=== PATIENT | female | born 1975 | race African-American/Black ===

== ENCOUNTER 2021-03-09 23:34 | Emergency (ER) | payer OTHER ==
[2021-03-10 01:05] LABS: #Basophils 0.1 thou/uL (0.0-0.2); #Lymphocytes 2.8 thou/uL (1.20-3.40); #Monocytes 0.3 thou/uL (0.11-0.59); #Neutrophils 2.4 thou/uL (1.40-6.50); %Basophils 1.2 % (0.0-1.0); %Eosinophils 0.4 % (0.0-10.0); %Lymphocytes 49.1 % (21.0-51.0); %Monocytes 5.7 % (0.0-10.0); %Neutrophils 43.5 % (42.0-75.0); Hemoglobin 15.5 g/dL (12.0-16.0); Mean Corpuscular HGB CONC 32.5 g/dL (32.0-36.0); Mean Corpuscular Hemoglobin 23.4 pg (27.0-31.0); Mean Corpuscular Volume 71.9 fL (78.0-98.0); Mean Platelet Volume 10.2 fL (7.4-10.4); Platelet Count 257 thou/uL (130-400); RBC Distribution Width 16.2 % (11.5-14.5); Red Blood Cell (RBC) Count 6.64 mill/uL (4.20-5.40); White Blood Cell (WBC) Count 5.6 thou/uL (4.8-10.8)
[2021-03-10 01:16] LABS: ALT (SGPT) 11 U/L (8-55); AST (SGOT) 23 U/L (5-34); Albumin 3.9 g/dL (3.5-5.0); Alkaline Phosphatase 161 U/L (40-110); Anion Gap 23 mmol/L (10-20); BUN (Urea Nitrogen) 24 mg/dL (7.0-18.7); Bilirubin, Total 0.8 mg/dL (0.2-1.2); Calc. Creatinine Clearance 0 mL/min (70-130); Carbon Dioxide 17 mmol/L (22-29); Chloride 93 mmol/L (98-107); Globulin 4.3 g/dL (2.4-3.5); Glucose 469 mg/dL (70-105); Potassium 3.8 mmol/L (3.5-5.1); Protein, Total 8.2 g/dL (6.0-8.3); Sodium 129 mmol/L (136-145)
[2021-03-10] MEDS ORDERED: Morphine 4 MG/ML VIAL ONE (01:47)
[2021-03-10 02:06] LABS: CKMB 6.9 ng/mL (0-6.6)
[2021-03-10 02:11] LABS: Hypochromia SLIGHT = 6-15 cells (100X) (0-5/hpf); MDiff Complete? YES; Microcytosis SLIGHT = 6-15 cells (100X) (0-5/hpf); Platelet Morphology Comment Appears Adequate
[2021-03-10 02:12] LABS: RBC Morphology Normal
== END 2021-03-10 02:20 | disposition short-term general hospital (02) ==
LOC: BURERS 23:34
DX: R07.9 Chest pain, unspecified (principal); E11.65 Type 2 diabetes mellitus with hyperglycemia; I25.2 Old myocardial infarction; E78.00 Pure hypercholesterolemia, unspecified; I25.10 Atherosclerotic heart disease of native coronary artery without angina pectoris
CPT/HCPCS: 71045; 80053; 82553; 84484; 85025; 93005; 96374; 96375; J2270

== ENCOUNTER 2021-03-31 19:38 | Emergency (ER) | payer OTHER ==
[2021-03-31] MEDS ORDERED: Iopamidol 370 76% 100 ML VIAL FS ONE (19:39)
[2021-03-31] MEDS ORDERED: Morphine 4 MG/ML VIAL ONE (20:27)
[2021-03-31] MEDS ORDERED: diphenhydrAMINE 50 MG/ML VIAL ONE (20:28)
[2021-03-31] MEDS ORDERED: diphenhydrAMINE 12.5 MG/5 ML UDCUP ONE (20:28)
[2021-03-31 20:33] LABS: Bilirubin Negative (Negative); Blood, Urine Moderate (Negative); Clarity Clear (Clear); Glucose, Urine (Dipstick) >=1000 mg/dL (Negative); Ketone, Urine 15 mg/dL (Negative); Leukocyte Negative (Negative); Nitrite Negative (Negative); Protein, Urine (Dipstick) > or equal to 300 mg/dL (Neg-Trace); Specific Gravity, Urine 1.015 (1.005-1.030); Urobilinogen 0.2 mg/dL (Less than 2); pH, Urine 6.5 (5.0-9.0)
[2021-03-31 20:41] LABS: Amphetamine Not Detected (NotDetected); Bacteria/HPF 1+ HPF (None Seen); Barbiturates Screen Not Detected (NotDetected); Benzodiazepine Screen Not Detected (NotDetected); Cocaine Metabolite Screen Not Detected (NotDetected); Medtox Control Line Valid? VALID (VALID); Methadone Not Detected (NotDetected); Methamphetamine Not Detected (NotDetected); Opiate Screen Not Detected (NotDetected); Oxycodone Screen Not Detected (NotDetected); Phencyclidine (PCP) Not Detected (NotDetected); RBC/HPF 0-3 HPF (0-3); THC/Cannabinoid Screen Not Detected (NotDetected); Tricyclic Screen Not Detected (NotDetected); WBC/HPF 0-3 HPF (0-3)
[2021-03-31 21:07] LABS: Acetaminophen Less than 6.0 mcg/mL (10.0-30.0); Alcohol Less than 10 mg/dL (Less than 10); Salicylate Less than 8.0 mg/dL (15.0-30.0)
[2021-03-31 21:10] LABS: ALT (SGPT) 14 U/L (8-55); AST (SGOT) 26 U/L (5-34); Albumin 4.6 g/dL (3.5-5.0); Alkaline Phosphatase 194 U/L (40-110); Anion Gap 29 mmol/L (10-20); BUN (Urea Nitrogen) 12 mg/dL (7.0-18.7); Bilirubin, Total 1.2 mg/dL (0.2-1.2); Calc. Creatinine Clearance 0 mL/min (70-130); Carbon Dioxide 19 mmol/L (22-29); Chloride 92 mmol/L (98-107); Globulin 5.1 g/dL (2.4-3.5); Glucose 544 mg/dL (70-105); Lipase 26 U/L (8-78); Magnesium 1.8 mg/dL (1.6-2.6); Potassium 3.7 mmol/L (3.5-5.1); Protein, Total 9.7 g/dL (6.0-8.3); Sodium 136 mmol/L (136-145)
[2021-03-31 21:31] LABS: #Basophils 0.1 thou/uL (0.0-0.2); #Lymphocytes 0.7 thou/uL (1.20-3.40); #Monocytes 0.2 thou/uL (0.11-0.59); #Neutrophils 8.8 thou/uL (1.40-6.50); %Basophils 0.6 % (0.0-1.0); %Lymphocytes 6.9 % (21.0-51.0); %Monocytes 1.7 % (0.0-10.0); %Neutrophils 90.8 % (42.0-75.0); Hemoglobin 13.4 g/dL (12.0-16.0); Mean Corpuscular HGB CONC 31.6 g/dL (32.0-36.0); Platelet Count 330 thou/uL (130-400); RBC Distribution Width 16.8 % (11.5-14.5); White Blood Cell (WBC) Count 9.7 thou/uL (4.8-10.8)
[2021-03-31] MEDS ORDERED: Labetalol HCl 100 MG/20 ML VIAL ONE (21:57)
[2021-03-31 22:02] LABS: CKMB 7.1 ng/mL (0-6.6)
[2021-03-31] MEDS ORDERED: Insulin Regular 300 UNITS/3 ML VIAL ONE (22:14)
[2021-03-31] MEDS ORDERED: Nitroglycerin 50 MG/250 ML BOT 250 ML ONE (23:39)
[2021-03-31] MEDS ORDERED: Heparin 25,000 units/D5W 500 ML ONE (23:45)
[2021-03-31] MEDS ORDERED: Heparin 10,000 UNITS/1 ML VIAL ONE (23:45)
[2021-04-01 00:01] LABS: Prothrombin Time 13.2 sec (12.0-14.7)
[2021-04-01 00:03] LABS: PTT 29.7 sec (22.9-36.1)
== END 2021-04-01 | disposition short-term general hospital (02) ==
LOC: BURERS 19:38
DX: I21.09 ST elevation (STEMI) myocardial infarction involving other coronary artery of anterior wall (principal); I13.10 Hypertensive heart and chronic kidney disease without heart failure, with stage 1 through stage 4 chronic kidney disease, or unspecified chronic kidney disease; E11.22 Type 2 diabetes mellitus with diabetic chronic kidney disease; N18.9 Chronic kidney disease, unspecified; R29.700 NIHSS score 0; R79.1 Abnormal coagulation profile; I25.2 Old myocardial infarction; E78.00 Pure hypercholesterolemia, unspecified; Z95.5 Presence of coronary angioplasty implant and graft
CPT/HCPCS: 36415; 36416; 70450; 71045; 71275; 80053; 80306; 80307; 81003; 81015; 82553; 83605; 83690; 83735; 84484; 85025; 85379; 85610; 85730; 93005; 94760; 96374; 96375; 96376; J1200; J1644; J1815; J2270; Q0163; Q9967

== ENCOUNTER 2021-04-19 18:46 | Emergency (ER) | payer OTHER ==
[2021-04-19 19:45] LABS: Bilirubin Negative (Negative); Blood, Urine Trace (Negative); Clarity Clear (Clear); Glucose, Urine (Dipstick) 500 mg/dL (Negative); Ketone, Urine Negative (Negative); Leukocyte Negative (Negative); Nitrite Negative (Negative); Protein, Urine (Dipstick) > or equal to 300 mg/dL (Neg-Trace); Urobilinogen 0.2 mg/dL (Less than 2)
[2021-04-19 19:53] LABS: Bacteria/HPF None Seen HPF (None Seen); RBC/HPF 0-3 HPF (0-3); Squamous Epithelial 0-3 HPF (0-3); WBC/HPF None Seen HPF (0-3)
[2021-04-19] MEDS ORDERED: Clopidogrel Bisulfate 75 MG TAB PO SCH (20:00)
[2021-04-19 20:03] LABS: ALT (SGPT) 13 U/L (8-55); AST (SGOT) 18 U/L (5-34); Albumin 4.1 g/dL (3.5-5.0); Alkaline Phosphatase 145 U/L (40-110); Anion Gap 18 mmol/L (10-20); BUN (Urea Nitrogen) 12 mg/dL (7.0-18.7); Bilirubin, Total 0.8 mg/dL (0.2-1.2); Calc. Creatinine Clearance 0 mL/min (70-130); Calcium 9.7 mg/dL (7.8-10.44); Carbon Dioxide 28 mmol/L (22-29); Chloride 88 mmol/L (98-107); Globulin 4.6 g/dL (2.4-3.5); Lipase 22 U/L (8-78); Potassium 3.5 mmol/L (3.5-5.1); Protein, Total 8.7 g/dL (6.0-8.3); Sodium 130 mmol/L (136-145)
[2021-04-19 20:05] LABS: Anisocytosis SLIGHT = 6-15 cells (100X) (0-5/hpf); Eosinophils 1 % (0-10); Hemoglobin 11.6 g/dL (12.0-16.0); Hypochromia SLIGHT = 6-15 cells (100X) (0-5/hpf); Lymphocytes 24 % (21-51); MDiff Complete? YES; Mean Corpuscular HGB CONC 30.5 g/dL (32.0-36.0); Mean Corpuscular Hemoglobin 22.9 pg (27.0-31.0); Mean Platelet Volume 8.7 fL (7.4-10.4); Microcytosis SLIGHT = 6-15 cells (100X) (0-5/hpf); Monocytes 9 % (0-10); Neutrophil 66 % (42-75); Ovalocytes SLIGHT = 2-5 cells (100X) (0-1/hpf); Platelet Count 197 thou/uL (130-400); Poikilocytosis SLIGHT = 6-15 cells (100X) (0-5/hpf); RBC Distribution Width 15.2 % (11.5-14.5); Red Blood Cell (RBC) Count 5.06 mill/uL (4.20-5.40); White Blood Cell (WBC) Count 7.7 thou/uL (4.8-10.8)
[2021-04-19 20:07] LABS: Glucose 639 mg/dL (70-105)
[2021-04-19 20:19] LABS: CKMB 4.9 ng/mL (0-6.6)
[2021-04-19] MEDS ORDERED: Fentanyl 100 MCG/2 ML VIAL ONE (20:42)
[2021-04-19] MEDS ORDERED: Promethazine HCl 25 MG/ML VIAL ONE (20:42)
[2021-04-19] MEDS ORDERED: Pantoprazole 40 MG VIAL ONE (20:42)
[2021-04-19] MEDS ORDERED: Labetalol HCl 100 MG/20 ML VIAL ONE (21:30)
[2021-04-19 22:06] LABS: SARS-CoV-2 NAA Rapid Test DETECTED (NotDetected)
[2021-04-19] MEDS ORDERED: niCARdipine 20MG In NaCl 20 MG/200 ML BAG ONE (22:46)
[2021-04-19] MEDS ORDERED: Morphine 4 MG/ML VIAL ONE (22:51)
== END 2021-04-19 23:15 | disposition short-term general hospital (02) ==
LOC: BURERS 18:46
DX: U07.1 COVID-19 (principal); I16.1 Hypertensive emergency; E11.65 Type 2 diabetes mellitus with hyperglycemia; R77.8 Other specified abnormalities of plasma proteins; I10 Essential (primary) hypertension; E78.00 Pure hypercholesterolemia, unspecified; Z79.84 Long term (current) use of oral hypoglycemic drugs; Z79.4 Long term (current) use of insulin
CPT/HCPCS: 36415; 36416; 36556; 71045; 80053; 81003; 81015; 82553; 83690; 84443; 84484; 85025; 93005; 96374; 96375; C9113; J2270; J2550; J3010; U0002

== ENCOUNTER 2021-05-09 10:33 | Emergency (ER) | payer OTHER ==
[2021-05-09] MEDS ORDERED: Morphine 4 MG/ML VIAL ONE (11:03)
[2021-05-09] MEDS ORDERED: Labetalol HCl 100 MG/20 ML VIAL ONE (11:03)
[2021-05-09] MEDS ORDERED: Promethazine HCl 25 MG/ML VIAL ONE (11:03)
[2021-05-09 11:38] LABS: #Basophils 0.1 thou/uL (0.0-0.2); #Lymphocytes 1.4 thou/uL (1.20-3.40); #Monocytes 0.4 thou/uL (0.11-0.59); #Neutrophils 8.2 thou/uL (1.40-6.50); %Basophils 1.1 % (0.0-1.0); %Eosinophils 0.1 % (0.0-10.0); %Lymphocytes 14.1 % (21.0-51.0); %Monocytes 3.8 % (0.0-10.0); %Neutrophils 80.9 % (42.0-75.0); Hemoglobin 13.7 g/dL (12.0-16.0); Mean Corpuscular HGB CONC 31.7 g/dL (32.0-36.0); Mean Corpuscular Volume 72.4 fL (78.0-98.0); Mean Platelet Volume 8.3 fL (7.4-10.4); Platelet Count 270 thou/uL (130-400); RBC Distribution Width 14.4 % (11.5-14.5); Red Blood Cell (RBC) Count 5.95 mill/uL (4.20-5.40); White Blood Cell (WBC) Count 10.1 thou/uL (4.8-10.8)
[2021-05-09 11:43] LABS: ALT (SGPT) 18 U/L (8-55); AST (SGOT) 26 U/L (5-34); Alkaline Phosphatase 164 U/L (40-110); Anion Gap 24 mmol/L (10-20); BUN (Urea Nitrogen) 27 mg/dL (7.0-18.7); Bilirubin, Total 1.1 mg/dL (0.2-1.2); Calc. Creatinine Clearance 0 mL/min (70-130); Carbon Dioxide 27 mmol/L (22-29); Chloride 94 mmol/L (98-107); Globulin 5.5 g/dL (2.4-3.5); Glucose 271 mg/dL (70-105); Potassium 3.5 mmol/L (3.5-5.1); Protein, Total 10.5 g/dL (6.0-8.3); Sodium 141 mmol/L (136-145)
[2021-05-09 12:00] LABS: CKMB 6.3 ng/mL (0-6.6)
[2021-05-09] MEDS ORDERED: Amlodipine 5 MG TAB ONE (12:10)
[2021-05-09] MEDS ORDERED: Enoxaparin Sodium 100 MG/ML SYRINGE ONE (12:11)
[2021-05-09 12:14] LABS: Bilirubin Negative (Negative); Blood, Urine Small (Negative); Clarity Clear (Clear); Glucose, Urine (Dipstick) 500 mg/dL (Negative); Ketone, Urine Trace mg/dL (Negative); Leukocyte Negative (Negative); Nitrite Negative (Negative); Protein, Urine (Dipstick) > or equal to 300 mg/dL (Neg-Trace); Urobilinogen 0.2 mg/dL (Less than 2)
[2021-05-09 12:26] LABS: Cocaine Metabolite Screen Not Detected (NotDetected); Methamphetamine Not Detected (NotDetected); Opiate Screen Not Detected (NotDetected); Phencyclidine (PCP) Not Detected (NotDetected); THC/Cannabinoid Screen Not Detected (NotDetected)
[2021-05-09 12:27] LABS: Amphetamine Not Detected (NotDetected); Barbiturates Screen Not Detected (NotDetected); Benzodiazepine Screen Not Detected (NotDetected); Medtox Control Line Valid? VALID (VALID); Methadone Not Detected (NotDetected); Oxycodone Screen Not Detected (NotDetected); Tricyclic Screen Not Detected (NotDetected)
[2021-05-09 12:28] LABS: Bacteria/HPF None Seen HPF (None Seen); Epithelial Cast 0-3 LPF (None Seen); Squamous Epithelial 0-3 HPF (0-3); Transitional Epithelial 0-3 HPF (None Seen); WBC/HPF 0-3 HPF (0-3)
[2021-05-09 12:37] LABS: Anisocytosis SLIGHT = 6-15 cells (100X) (0-5/hpf); Hypochromia SLIGHT = 6-15 cells (100X) (0-5/hpf); MDiff Complete? YES; Platelet Morphology Comment Appears Adequate; Target Cells SLIGHT = 2-5 cells (100X) (0-1/hpf)
== END 2021-05-09 17:06 | disposition short-term general hospital (02) ==
LOC: BURERS 10:33
DX: R07.89 Other chest pain (principal); I16.0 Hypertensive urgency; E11.9 Type 2 diabetes mellitus without complications; I25.2 Old myocardial infarction; Z79.84 Long term (current) use of oral hypoglycemic drugs; Z79.4 Long term (current) use of insulin; Z79.899 Other long term (current) drug therapy
CPT/HCPCS: 36416; 71045; 80053; 80306; 81003; 81015; 82553; 84484; 85025; 93005; 96372; 96374; 96375; 96376; J1650; J2270; J2550

== ENCOUNTER 2021-05-16 20:47 | Emergency (ER) | payer OTHER ==
[2021-05-16] MEDS ORDERED: Iopamidol 370 76% 100 ML VIAL FS ONE (20:48)
[2021-05-16] MEDS ORDERED: Piperacillin/Tazobactam 4.5 GM VIAL ONE (22:03)
[2021-05-16] MEDS ORDERED: Acetaminophen 500 MG TAB ONE ×2 (22:03→22:05)
[2021-05-16] MEDS ORDERED: Fentanyl 100 MCG/2 ML VIAL ONE ×2 (22:03→23:26)
[2021-05-16 22:08] LABS: Bilirubin Negative (Negative); Blood, Urine Trace (Negative); Clarity Clear (Clear); Glucose, Urine (Dipstick) 500 mg/dL (Negative); Ketone, Urine Negative (Negative); Leukocyte Negative (Negative); Nitrite Negative (Negative); Protein, Urine (Dipstick) 100 mg/dL (Neg-Trace); Urobilinogen 0.2 mg/dL (Less than 2)
[2021-05-16 22:15] LABS: Bacteria/HPF Rare-Few HPF (None Seen); Mucous/LPF 1+ LPF (<2+); RBC/HPF 0-3 HPF (0-3); Squamous Epithelial 0-3 HPF (0-3); WBC/HPF 0-3 HPF (0-3)
[2021-05-16 22:18] LABS: ALT (SGPT) 11 U/L (8-55); AST (SGOT) 20 U/L (5-34); Albumin 4.1 g/dL (3.5-5.0); Alkaline Phosphatase 101 U/L (40-110); Anion Gap 16 mmol/L (10-20); BUN (Urea Nitrogen) 17 mg/dL (7.0-18.7); Bilirubin, Total 0.9 mg/dL (0.2-1.2); Calc. Creatinine Clearance 0 mL/min (70-130); Calcium 9.8 mg/dL (7.8-10.44); Carbon Dioxide 27 mmol/L (22-29); Chloride 95 mmol/L (98-107); Globulin 4.3 g/dL (2.4-3.5); Glucose 278 mg/dL (70-105); Potassium 3.7 mmol/L (3.5-5.1); Protein, Total 8.4 g/dL (6.0-8.3); Sodium 134 mmol/L (136-145)
[2021-05-16 22:43] LABS: Hemoglobin 10.3 g/dL (12.0-16.0); Mean Corpuscular HGB CONC 32.5 g/dL (32.0-36.0); Mean Corpuscular Hemoglobin 23.7 pg (27.0-31.0); Mean Corpuscular Volume 72.9 fL (78.0-98.0); Mean Platelet Volume 9.3 fL (7.4-10.4); Platelet Count 237 thou/uL (130-400); RBC Distribution Width 13.9 % (11.5-14.5); Red Blood Cell (RBC) Count 4.34 mill/uL (4.20-5.40); White Blood Cell (WBC) Count 12.7 thou/uL (4.8-10.8)
[2021-05-16 22:44] LABS: #Basophils 0.4 thou/uL (0.0-0.2); #Eosinphils 0.1 thou/uL (0.0-0.7); #Lymphocytes 1.5 thou/uL (1.20-3.40); #Neutrophils 9.8 thou/uL (1.40-6.50); %Basophils 2.9 % (0.0-1.0); %Eosinophils 0.7 % (0.0-10.0); %Lymphocytes 11.9 % (21.0-51.0); %Monocytes 7.6 % (0.0-10.0); %Neutrophils 76.9 % (42.0-75.0)
[2021-05-16] MEDS ORDERED: Promethazine HCl 25 MG/ML VIAL ONE (23:25)
[2021-05-16] MEDS ORDERED: Enoxaparin Sodium 100 MG/ML SYRINGE ONE (23:26)
[2021-05-17] MEDS ORDERED: Fentanyl 100 MCG/2 ML VIAL ONE (00:27)
[2021-05-17 02:56] LABS: Hypochromia SLIGHT = 6-15 cells (100X) (0-5/hpf); MDiff Complete? YES; Microcytosis SLIGHT = 6-15 cells (100X) (0-5/hpf); Platelet Morphology Comment Appears Adequate
== END 2021-05-17 00:30 | disposition short-term general hospital (02) ==
LOC: BURERS 20:47
DX: E11.621 Type 2 diabetes mellitus with foot ulcer (principal); L97.519 Non-pressure chronic ulcer of other part of right foot with unspecified severity; I10 Essential (primary) hypertension; E11.9 Type 2 diabetes mellitus without complications; E78.00 Pure hypercholesterolemia, unspecified; I25.2 Old myocardial infarction; E78.5 Hyperlipidemia, unspecified; E66.9 Obesity, unspecified; Z68.45 Body mass index [BMI] 70 or greater, adult; Z79.4 Long term (current) use of insulin; Z79.899 Other long term (current) drug therapy
CPT/HCPCS: 71275; 80053; 81003; 81015; 83605; 85025; 85379; 87040; 87086; J1650; J2543; J2550; J3010; Q9967

== ENCOUNTER 2021-05-23 22:01 | Emergency (ER) | payer OTHER ==
[2021-05-23] MEDS ORDERED: Iopamidol 370 76% 100 ML VIAL FS ONE (22:02)
[2021-05-23 23:21] LABS: #Basophils 0.1 thou/uL (0.0-0.2); #Eosinphils 0.2 thou/uL (0.0-0.7); #Lymphocytes 1.9 thou/uL (1.20-3.40); #Monocytes 0.7 thou/uL (0.11-0.59); #Neutrophils 5.6 thou/uL (1.40-6.50); %Eosinophils 2.2 % (0.0-10.0); %Lymphocytes 22.2 % (21.0-51.0); %Monocytes 8.8 % (0.0-10.0); %Neutrophils 65.9 % (42.0-75.0); Hemoglobin 7.9 g/dL (12.0-16.0); Mean Corpuscular HGB CONC 32.1 g/dL (32.0-36.0); Mean Corpuscular Hemoglobin 23.5 pg (27.0-31.0); Mean Corpuscular Volume 73.2 fL (78.0-98.0); Mean Platelet Volume 8.1 fL (7.4-10.4); Platelet Count 289 thou/uL (130-400); RBC Distribution Width 14.2 % (11.5-14.5); Red Blood Cell (RBC) Count 3.36 mill/uL (4.20-5.40); White Blood Cell (WBC) Count 8.5 thou/uL (4.8-10.8)
[2021-05-23 23:40] LABS: ALT (SGPT) 8 U/L (8-55); AST (SGOT) 16 U/L (5-34); Albumin 3.2 g/dL (3.5-5.0); Alkaline Phosphatase 90 U/L (40-110); Anion Gap 15 mmol/L (10-20); BUN (Urea Nitrogen) 18 mg/dL (7.0-18.7); Bilirubin, Total 0.4 mg/dL (0.2-1.2); CRP (Inflammatory) 10.89 mg/dL (= or < 0.5); Calc. Creatinine Clearance 0 mL/min (70-130); Calcium 8.6 mg/dL (7.8-10.44); Carbon Dioxide 23 mmol/L (22-29); Chloride 100 mmol/L (98-107); Glucose 127 mg/dL (70-105); Protein, Total 7.2 g/dL (6.0-8.3); Sodium 134 mmol/L (136-145)
[2021-05-23 23:41] LABS: MDiff Complete? YES; Microcytosis MODERATE=15-30 cells (100X) (0-5/hpf)
[2021-05-23] MEDS ORDERED: Clindamycin/D5W 600 mg/50 ml Premix Bag ONE (23:43)
[2021-05-23] MEDS ORDERED: Morphine 4 MG/ML VIAL ONE ×2 (23:44→23:45)
[2021-05-24 01:27] LABS: Hemoglobin 8.7 g/dL (12.0-16.0); Mean Corpuscular HGB CONC 33.3 g/dL (32.0-36.0); Mean Corpuscular Hemoglobin 23.8 pg (27.0-31.0); Mean Corpuscular Volume 71.6 fL (78.0-98.0); Mean Platelet Volume 7.2 fL (7.4-10.4); Platelet Count 312 thou/uL (130-400); RBC Distribution Width 15.9 % (11.5-14.5); Red Blood Cell (RBC) Count 3.66 mill/uL (4.20-5.40); White Blood Cell (WBC) Count 10.3 thou/uL (4.8-10.8)
[2021-05-24] MEDS ORDERED: Cefepime 2 GM VIAL ONE (04:53)
[2021-05-24] MEDS ORDERED: Labetalol HCl 200 MG TAB PO SCH (05:00)
[2021-05-24 05:56] LABS: SARS-CoV-2 NAA Rapid Test Not Detected (NotDetected)
[2021-05-24] MEDS ORDERED: Morphine 4 MG/ML VIAL ONE (06:09)
== END 2021-05-24 06:10 | disposition home or self-care (01) ==
LOC: BURERS 22:01
DX: L03.115 Cellulitis of right lower limb (principal); J18.9 Pneumonia, unspecified organism; D64.9 Anemia, unspecified; I10 Essential (primary) hypertension; E11.9 Type 2 diabetes mellitus without complications; E78.00 Pure hypercholesterolemia, unspecified; I25.2 Old myocardial infarction; I25.10 Atherosclerotic heart disease of native coronary artery without angina pectoris; E78.5 Hyperlipidemia, unspecified; E66.9 Obesity, unspecified; Z20.822 Contact with and (suspected) exposure to COVID-19; Z79.4 Long term (current) use of insulin; Z79.899 Other long term (current) drug therapy; Z68.45 Body mass index [BMI] 70 or greater, adult
CPT/HCPCS: 74177; 80053; 82274; 85025; 85027; 86140; 96365; 96375; 96376; J0692; J2270; J3490; Q9967; U0002

== ENCOUNTER 2021-06-02 14:03 | Emergency (ER) | payer OTHER ==
[2021-06-02] MEDS ORDERED: Iopamidol 370 76% 100 ML VIAL FS ONE (14:04)
[2021-06-02 14:36] LABS: #Eosinphils 0.1 thou/uL (0.0-0.7); #Lymphocytes 1.8 thou/uL (1.20-3.40); #Monocytes 0.5 thou/uL (0.11-0.59); #Neutrophils 2.5 thou/uL (1.40-6.50); %Basophils 0.8 % (0.0-1.0); %Eosinophils 1.8 % (0.0-10.0); %Lymphocytes 37.1 % (21.0-51.0); %Monocytes 9.3 % (0.0-10.0); Hemoglobin 9.3 g/dL (12.0-16.0); Mean Corpuscular Hemoglobin 22.3 pg (27.0-31.0); Mean Corpuscular Volume 72.1 fL (78.0-98.0); Mean Platelet Volume 6.3 fL (7.4-10.4); Platelet Count 365 thou/uL (130-400); RBC Distribution Width 14.8 % (11.5-14.5); Red Blood Cell (RBC) Count 4.17 mill/uL (4.20-5.40); White Blood Cell (WBC) Count 4.8 thou/uL (4.8-10.8)
[2021-06-02 14:37] LABS: MDiff Complete? YES
[2021-06-02 14:54] LABS: ALT (SGPT) 22 U/L (8-55); AST (SGOT) 33 U/L (5-34); Albumin 3.5 g/dL (3.5-5.0); Alkaline Phosphatase 146 U/L (40-110); Anion Gap 14 mmol/L (10-20); BUN (Urea Nitrogen) 22 mg/dL (7.0-18.7); Bilirubin, Total 0.7 mg/dL (0.2-1.2); Calc. Creatinine Clearance 0 mL/min (70-130); Calcium 9.3 mg/dL (7.8-10.44); Carbon Dioxide 24 mmol/L (22-29); Chloride 105 mmol/L (98-107); Globulin 4.7 g/dL (2.4-3.5); Glucose 100 mg/dL (70-105); Potassium 4.1 mmol/L (3.5-5.1); Protein, Total 8.2 g/dL (6.0-8.3); Sodium 139 mmol/L (136-145)
[2021-06-02 15:11] LABS: CKMB 2.9 ng/mL (0-6.6)
[2021-06-02] MEDS ORDERED: Promethazine HCl 25 MG/ML VIAL ONE (15:13)
[2021-06-02] MEDS ORDERED: Morphine 4 MG/ML VIAL ONE ×2 (15:13→16:33)
[2021-06-02] MEDS ORDERED: niCARdipine 20MG In NaCl 20 MG/200 ML BAG ONE (15:44)
[2021-06-02] MEDS ORDERED: Furosemide 40 MG/4 ML VIAL ONE (15:44)
[2021-06-02 20:37] LABS: SARS-CoV-2 NAA Rapid Test Not Detected (NotDetected)
== END 2021-06-02 16:46 | disposition short-term general hospital (02) ==
LOC: BURERS 14:03
DX: I11.0 Hypertensive heart disease with heart failure (principal); I50.9 Heart failure, unspecified; R94.31 Abnormal electrocardiogram [ECG] [EKG]; E11.9 Type 2 diabetes mellitus without complications; E78.00 Pure hypercholesterolemia, unspecified; I25.2 Old myocardial infarction; I25.10 Atherosclerotic heart disease of native coronary artery without angina pectoris; E78.5 Hyperlipidemia, unspecified; E66.9 Obesity, unspecified; Z68.45 Body mass index [BMI] 70 or greater, adult; Z20.822 Contact with and (suspected) exposure to COVID-19; Z79.4 Long term (current) use of insulin
CPT/HCPCS: 71275; 80053; 82553; 83880; 84484; 85025; 93005; 96365; 96375; 96376; J1940; J2270; J2550; Q9967; U0002

== ENCOUNTER 2021-06-20 15:40 | Emergency (ER) | payer OTHER ==
[2021-06-20 17:09] LABS: ALT (SGPT) 16 U/L (8-55); AST (SGOT) 27 U/L (5-34); Albumin 3.4 g/dL (3.5-5.0); Alkaline Phosphatase 111 U/L (40-110); Anion Gap 13 mmol/L (10-20); BUN (Urea Nitrogen) 23 mg/dL (7.0-18.7); Bilirubin, Total 0.6 mg/dL (0.2-1.2); Calc. Creatinine Clearance 0 mL/min (70-130); Carbon Dioxide 27 mmol/L (22-29); Chloride 102 mmol/L (98-107); Globulin 4.2 g/dL (2.4-3.5); Glucose 98 mg/dL (70-105); Protein, Total 7.6 g/dL (6.0-8.3); Sodium 138 mmol/L (136-145)
[2021-06-20 17:11] LABS: #Eosinphils 0.1 thou/uL (0.0-0.7); #Lymphocytes 1.8 thou/uL (1.20-3.40); #Monocytes 0.4 thou/uL (0.11-0.59); #Neutrophils 1.4 thou/uL (1.40-6.50); %Eosinophils 2.4 % (0.0-10.0); %Lymphocytes 47.4 % (21.0-51.0); %Monocytes 11.2 % (0.0-10.0); %Neutrophils 37.9 % (42.0-75.0); Hemoglobin 9.7 g/dL (12.0-16.0); Mean Corpuscular HGB CONC 31.5 g/dL (32.0-36.0); Mean Corpuscular Hemoglobin 22.3 pg (27.0-31.0); Mean Corpuscular Volume 70.6 fL (78.0-98.0); Mean Platelet Volume 8.5 fL (7.4-10.4); Platelet Count 262 thou/uL (130-400); Red Blood Cell (RBC) Count 4.36 mill/uL (4.20-5.40); White Blood Cell (WBC) Count 3.7 thou/uL (4.8-10.8)
[2021-06-20 17:27] LABS: CKMB 3.4 ng/mL (0-6.6)
[2021-06-20] MEDS ORDERED: Fentanyl 100 MCG/2 ML VIAL ONE ×2 (17:55→18:55)
[2021-06-20 18:34] LABS: Anisocytosis MODERATE=16-30 cells (100X) (0-5/hpf); Basophilic Stippling SLIGHT = 1-2 cells (100X) (None Seen); Hypochromia SLIGHT = 6-15 cells (100X) (0-5/hpf); MDiff Complete? YES; Polychromasia SLIGHT = 2-3 cells (100X) (0-2/hpf)
[2021-06-20] MEDS ORDERED: Labetalol HCl 100 MG/20 ML VIAL ONE (18:34)
[2021-06-20] MEDS ORDERED: hydrALAZINE 20 MG/ML VIAL ONE (19:16)
== END 2021-06-20 19:30 | disposition short-term general hospital (02) ==
LOC: BURERS 15:40
DX: R79.89 Other specified abnormal findings of blood chemistry (principal); R79.1 Abnormal coagulation profile; I10 Essential (primary) hypertension; R00.1 Bradycardia, unspecified; I25.10 Atherosclerotic heart disease of native coronary artery without angina pectoris; E78.00 Pure hypercholesterolemia, unspecified; I25.2 Old myocardial infarction; E11.9 Type 2 diabetes mellitus without complications; Z79.899 Other long term (current) drug therapy
CPT/HCPCS: 71045; 80053; 82553; 84484; 85025; 85379; 93005; 96374; 96375; 96376; J0360; J3010

== ENCOUNTER 2021-06-28 16:16 | Emergency (ER) | payer OTHER ==
[2021-06-28] MEDS ORDERED: Iopamidol 370 76% 100 ML VIAL FS ONE (16:17)
[2021-06-28] MEDS ORDERED: Promethazine HCl 25 MG/ML VIAL ONE (16:50)
[2021-06-28] MEDS ORDERED: Fentanyl 100 MCG/2 ML VIAL ONE ×2 (16:50→18:33)
[2021-06-28] MEDS ORDERED: niCARdipine 20MG In NaCl 20 MG/200 ML BAG ONE (16:50)
[2021-06-28] MEDS ORDERED: Labetalol HCl 100 MG/20 ML VIAL ONE (17:00)
[2021-06-28 17:06] LABS: #Basophils 0.1 thou/uL (0.0-0.2); #Eosinphils 0.1 thou/uL (0.0-0.7); #Lymphocytes 2.7 thou/uL (1.20-3.40); #Monocytes 1.1 thou/uL (0.11-0.59); %Basophils 1.3 % (0.0-1.0); %Lymphocytes 26.8 % (21.0-51.0); %Monocytes 10.7 % (0.0-10.0); %Neutrophils 60.2 % (42.0-75.0); Hemoglobin 2.2 g/dL (12.0-16.0); Mean Corpuscular HGB CONC 31.7 g/dL (32.0-36.0); Mean Corpuscular Hemoglobin 22.2 pg (27.0-31.0); Mean Corpuscular Volume 69.9 fL (78.0-98.0); Mean Platelet Volume 8.1 fL (7.4-10.4); Platelet Count 403 thou/uL (130-400); RBC Distribution Width 14.8 % (11.5-14.5); Red Blood Cell (RBC) Count 1.01 mill/uL (4.20-5.40)
[2021-06-28 17:14] LABS: ALT (SGPT) 10 U/L (8-55); Albumin 3.3 g/dL (3.5-5.0); Alkaline Phosphatase 103 U/L (40-110); Anion Gap 16 mmol/L (10-20); BUN (Urea Nitrogen) 17 mg/dL (7.0-18.7); Bilirubin, Total 0.6 mg/dL (0.2-1.2); Calc. Creatinine Clearance 0 mL/min (70-130); Calcium 9.4 mg/dL (7.8-10.44); Carbon Dioxide 27 mmol/L (22-29); Chloride 99 mmol/L (98-107); Glucose 280 mg/dL (70-105); Lipase 40 U/L (8-78); Potassium 4.6 mmol/L (3.5-5.1); Protein, Total 8.3 g/dL (6.0-8.3); Sodium 137 mmol/L (136-145)
[2021-06-28 17:15] LABS: Acetaminophen Less than 6.0 mcg/mL (10.0-30.0); Alcohol Less than 10 mg/dL (Less than 10); Salicylate Less than 8.0 mg/dL (15.0-30.0)
[2021-06-28 17:33] LABS: AST (SGOT) 25 U/L (5-34)
[2021-06-28 17:43] LABS: CKMB 4.5 ng/mL (0-6.6)
[2021-06-28 18:00] LABS: #Basophils 0.1 thou/uL (0.0-0.2); #Eosinphils 0.1 thou/uL (0.0-0.7); #Lymphocytes 1.8 thou/uL (1.20-3.40); #Monocytes 0.7 thou/uL (0.11-0.59); #Neutrophils 3.8 thou/uL (1.40-6.50); %Basophils 1.1 % (0.0-1.0); %Eosinophils 1.1 % (0.0-10.0); %Lymphocytes 28.2 % (21.0-51.0); %Monocytes 10.4 % (0.0-10.0); %Neutrophils 59.2 % (42.0-75.0); Hemoglobin 10.4 g/dL (12.0-16.0); Mean Corpuscular HGB CONC 30.3 g/dL (32.0-36.0); Mean Corpuscular Hemoglobin 21.5 pg (27.0-31.0); Mean Platelet Volume 7.7 fL (7.4-10.4); Platelet Count 253 thou/uL (130-400); Red Blood Cell (RBC) Count 4.83 mill/uL (4.20-5.40); White Blood Cell (WBC) Count 6.4 thou/uL (4.8-10.8)
[2021-06-28 18:01] LABS: MDiff Complete? YES
[2021-06-28 18:02] LABS: MDiff Complete? YES
[2021-06-28 18:12] LABS: ALT (SGPT) 10 U/L (8-55); AST (SGOT) 18 U/L (5-34); Albumin 3.5 g/dL (3.5-5.0); Alkaline Phosphatase 105 U/L (40-110); Anion Gap 14 mmol/L (10-20); BUN (Urea Nitrogen) 17 mg/dL (7.0-18.7); Bilirubin, Total 0.6 mg/dL (0.2-1.2); Calc. Creatinine Clearance 0 mL/min (70-130); Calcium 9.8 mg/dL (7.8-10.44); Carbon Dioxide 28 mmol/L (22-29); Chloride 100 mmol/L (98-107); Globulin 4.7 g/dL (2.4-3.5); Glucose 288 mg/dL (70-105); Potassium 4.2 mmol/L (3.5-5.1); Protein, Total 8.2 g/dL (6.0-8.3); Sodium 138 mmol/L (136-145)
[2021-06-28 18:21] LABS: Amphetamine Not Detected (NotDetected); Barbiturates Screen Not Detected (NotDetected); Benzodiazepine Screen Not Detected (NotDetected); Cocaine Metabolite Screen Not Detected (NotDetected); Medtox Control Line Valid? VALID (VALID); Methadone Not Detected (NotDetected); Methamphetamine Not Detected (NotDetected); Opiate Screen Detected (NotDetected); Oxycodone Screen Not Detected (NotDetected); Phencyclidine (PCP) Not Detected (NotDetected); THC/Cannabinoid Screen Not Detected (NotDetected); Tricyclic Screen Not Detected (NotDetected)
[2021-06-28 18:51] LABS: SARS-CoV-2 NAA Rapid Test Not Detected (NotDetected)
== END 2021-06-28 19:01 | disposition short-term general hospital (02) ==
LOC: BURERS 16:16
DX: I16.1 Hypertensive emergency (principal); R07.9 Chest pain, unspecified; I25.10 Atherosclerotic heart disease of native coronary artery without angina pectoris; I10 Essential (primary) hypertension; Z20.822 Contact with and (suspected) exposure to COVID-19; E78.3 Hyperchylomicronemia; E11.9 Type 2 diabetes mellitus without complications
CPT/HCPCS: 36415; 71045; 71275; 74174; 80053; 80306; 80307; 82553; 83605; 83690; 83880; 84443; 84484; 85025; 85379; 93005; 96374; 96375; 96376; J2550; J3010; Q9967; U0002

== ENCOUNTER 2021-07-07 17:41 | Emergency (ER) | payer OTHER ==
[2021-07-07] MEDS ORDERED: Fentanyl 100 MCG/2 ML VIAL ONE (19:51)
== END 2021-07-07 20:50 | disposition home or self-care (01) ==
LOC: BURERS 17:41
DX: R07.89 Other chest pain (principal); D64.9 Anemia, unspecified; I10 Essential (primary) hypertension; I25.10 Atherosclerotic heart disease of native coronary artery without angina pectoris; E78.00 Pure hypercholesterolemia, unspecified; I25.2 Old myocardial infarction; E11.9 Type 2 diabetes mellitus without complications
CPT/HCPCS: 36415; 71045; 80053; 82553; 83880; 84443; 84484; 85025; 85379; 93005; 96374; J3010

== ENCOUNTER 2021-07-29 16:07 | Emergency (ER) | payer OTHER | END 2021-07-29 16:40 | disposition home or self-care (01) | LOC: BURERS 16:07 | DX: M79.662 Pain in left lower leg (principal); M79.661 Pain in right lower leg; M25.572 Pain in left ankle and joints of left foot; M25.571 Pain in right ankle and joints of right foot; G89.29 Other chronic pain; I25.2 Old myocardial infarction; I10 Essential (primary) hypertension; E78.00 Pure hypercholesterolemia, unspecified; E11.9 Type 2 diabetes mellitus without complications; I25.10 Atherosclerotic heart disease of native coronary artery without angina pectoris | CPT/HCPCS: 99281 ==

== ENCOUNTER 2021-08-02 00:21 | Emergency (ER) | payer OTHER ==
[2021-08-02] MEDS ORDERED: Meclizine HCl 25 MG TAB ONE (00:50)
[2021-08-02 01:17] LABS: Bilirubin Negative (Negative); Blood, Urine Small (Negative); Clarity Clear (Clear); Glucose, Urine (Dipstick) Negative (Negative); Ketone, Urine Negative (Negative); Leukocyte Negative (Negative); Nitrite Negative (Negative); Protein, Urine (Dipstick) > or equal to 300 mg/dL (Neg-Trace); Specific Gravity, Urine 1.025 (1.005-1.030); Urobilinogen 0.2 mg/dL (Less than 2)
[2021-08-02 01:22] LABS: Bacteria/HPF None Seen HPF (None Seen); RBC/HPF 0-3 HPF (0-3); Squamous Epithelial 0-3 HPF (0-3); WBC/HPF None Seen HPF (0-3)
[2021-08-02] MEDS ORDERED: Promethazine HCl 25 MG/ML VIAL ONE (01:31)
[2021-08-02] MEDS ORDERED: Cyclobenzaprine 10 MG TAB ONE (01:33)
== END 2021-08-02 01:26 | disposition home or self-care (01) ==
LOC: BURERS 00:21
DX: R11.2 Nausea with vomiting, unspecified (principal); G89.29 Other chronic pain; M79.606 Pain in leg, unspecified; E11.9 Type 2 diabetes mellitus without complications; I10 Essential (primary) hypertension; I25.10 Atherosclerotic heart disease of native coronary artery without angina pectoris; I25.2 Old myocardial infarction; E78.00 Pure hypercholesterolemia, unspecified; Z79.4 Long term (current) use of insulin; Z79.84 Long term (current) use of oral hypoglycemic drugs; Z79.899 Other long term (current) drug therapy
CPT/HCPCS: 36416; 81003; 81015; 96372; 99283; J2550

== ENCOUNTER 2021-08-02 17:24 | Emergency (ER) | payer OTHER ==
[2021-08-02 18:20] LABS: Hemoglobin 12.4 g/dL (12.0-16.0); Mean Corpuscular HGB CONC 30.1 g/dL (32.0-36.0); Mean Corpuscular Hemoglobin 20.9 pg (27.0-31.0); Mean Corpuscular Volume 69.4 fL (78.0-98.0); Mean Platelet Volume 7.5 fL (7.4-10.4); Platelet Count 421 thou/uL (130-400); RBC Distribution Width 16.7 % (11.5-14.5); Red Blood Cell (RBC) Count 5.95 mill/uL (4.20-5.40); White Blood Cell (WBC) Count 9.9 thou/uL (4.8-10.8)
[2021-08-02] MEDS ORDERED: Labetalol HCl 100 MG/20 ML VIAL ONE (18:22)
[2021-08-02] MEDS ORDERED: Promethazine HCl 25 MG/ML VIAL ONE (18:23)
[2021-08-02] MEDS ORDERED: Pantoprazole 40 MG VIAL ONE (18:23)
[2021-08-02 18:31] LABS: ALT (SGPT) 16 U/L (8-55); AST (SGOT) 32 U/L (5-34); Albumin 3.5 g/dL (3.5-5.0); Alkaline Phosphatase 139 U/L (40-110); Anion Gap 25 mmol/L (10-20); BUN (Urea Nitrogen) 14 mg/dL (7.0-18.7); Bilirubin, Total 0.8 mg/dL (0.2-1.2); Calc. Creatinine Clearance 0 mL/min (70-130); Carbon Dioxide 23 mmol/L (22-29); Chloride 99 mmol/L (98-107); Globulin 6.7 g/dL (2.4-3.5); Glucose 141 mg/dL (70-105); Lipase 11 U/L (8-78); Magnesium 1.4 mg/dL (1.6-2.6); Potassium 3.8 mmol/L (3.5-5.1); Protein, Total 10.2 g/dL (6.0-8.3); Sodium 143 mmol/L (136-145)
[2021-08-02 18:41] LABS: Base Excess-Venous 3.2 mmol/L (-2.0 to 3.0); Bicarbonate (HCO3v) 24.9 mmol/L (22.0-28.0); CO2 Tension (PvCO2) 29.1 mmHg (42.0-51.0); Calcium, Ionized 0.91 mmol/L (1.15-1.33); Chloride 104 mmol/L (98-107); Hemoglobin - Calc 14.7 g/dL (12.0-16.0); Potassium 3.8 mmol/L (3.5-5.1); Sodium 142 mmol/L (138-145); T. Carbon Dioxide 25.8 mmol/L (22.0-28.0); vO2 Saturation-calc 99.8 % (60.0-85.0)
[2021-08-02] MEDS ORDERED: Magnesium 2 GM/50 ML BAG (IN WATER) ONE (18:58)
[2021-08-02 19:42] LABS: CKMB 7.7 ng/mL (0-6.6)
[2021-08-02] MEDS ORDERED: niCARdipine 20MG In NaCl 20 MG/200 ML BAG ONE (19:59)
[2021-08-02] MEDS ORDERED: Heparin 25,000 units/D5W 500 ML ONE (20:00)
[2021-08-02] MEDS ORDERED: Heparin 10,000 UNITS/1 ML VIAL ONE (20:01)
[2021-08-02 20:18] LABS: Bilirubin Negative (Negative); Blood, Urine Moderate (Negative); Clarity Clear (Clear); Glucose, Urine (Dipstick) Negative (Negative); Ketone, Urine Trace mg/dL (Negative); Leukocyte Negative (Negative); Nitrite Negative (Negative); Protein, Urine (Dipstick) > or equal to 300 mg/dL (Neg-Trace); Specific Gravity, Urine 1.025 (1.005-1.030); Urobilinogen 0.2 mg/dL (Less than 2)
[2021-08-02 20:29] LABS: INR-International Normal Ratio 1.3; Prothrombin Time 15.9 sec (12.0-14.7)
[2021-08-02 20:34] LABS: PTT 210.2 sec (22.9-36.1)
[2021-08-02 21:00] LABS: Amphetamine Not Detected (NotDetected); Cocaine Metabolite Screen Not Detected (NotDetected); Methamphetamine Not Detected (NotDetected); Opiate Screen Detected (NotDetected); Phencyclidine (PCP) Not Detected (NotDetected); THC/Cannabinoid Screen Not Detected (NotDetected)
[2021-08-02 21:01] LABS: Barbiturates Screen Not Detected (NotDetected); Benzodiazepine Screen Not Detected (NotDetected); Medtox Control Line Valid? VALID (VALID); Methadone Not Detected (NotDetected); Oxycodone Screen Not Detected (NotDetected); Tricyclic Screen Not Detected (NotDetected)
[2021-08-02 21:17] LABS: Anisocytosis MODERATE=16-30 cells (100X) (0-5/hpf); Band 5 % (5-11); Lymphocytes 12 % (21-51); MDiff Complete? YES; Monocytes 4 % (0-10); Neutrophil 78 % (42-75); Platelet Morphology Comment Appears Increased; Reflex for Review?? YES; Spherocytes SLIGHT = 1-5 cells (100X) (None Seen)
[2021-08-02 21:36] LABS: SARS-CoV-2 NAA Rapid Test Not Detected (NotDetected)
[2021-08-02 21:38] LABS: Bacteria/HPF Rare-Few HPF (None Seen); RBC/HPF 0-3 HPF (0-3); Squamous Epithelial 0-3 HPF (0-3); WBC/HPF 0-3 HPF (0-3)
== END 2021-08-02 21:19 | disposition short-term general hospital (02) ==
LOC: BURERS 17:24
DX: I21.4 Non-ST elevation (NSTEMI) myocardial infarction (principal); I16.1 Hypertensive emergency; Z20.822 Contact with and (suspected) exposure to COVID-19
CPT/HCPCS: 71045; 80053; 80306; 81015; 82330; 82553; 82803; 83605; 83690; 83735; 84443; 84484; 85025; 85060; 85610; 85730; 93005; 96365; 96367; 96375; 96376; C9113; J1644; J2550; J3475; U0002

== ENCOUNTER 2021-08-10 03:45 | Emergency (ER) | payer OTHER ==
[2021-08-10] MEDS ORDERED: Promethazine HCl 25 MG/ML VIAL ONE (04:22)
[2021-08-10] MEDS ORDERED: Sucralfate 1 GM TAB PO SCH (04:30)
[2021-08-10] MEDS ORDERED: Labetalol HCl 100 MG/20 ML VIAL ONE (04:49)
[2021-08-10] MEDS ORDERED: cloNIDine 0.1 MG TAB ONE (05:41)
[2021-08-10] MEDS ORDERED: tiZANidine HCl 4 MG TAB PO SCH (06:30)
[2021-08-10 06:59] LABS: CKMB 3.7 ng/mL (0-6.6)
[2021-08-10 07:01] LABS: ALT (SGPT) 14 U/L (8-55); AST (SGOT) 19 U/L (5-34); Albumin 3.8 g/dL (3.5-5.0); Alkaline Phosphatase 106 U/L (40-110); Anion Gap 20 mmol/L (10-20); BUN (Urea Nitrogen) 15 mg/dL (7.0-18.7); Bilirubin, Total 0.4 mg/dL (0.2-1.2); Calc. Creatinine Clearance 0 mL/min (70-130); Calcium 9.8 mg/dL (7.8-10.44); Carbon Dioxide 24 mmol/L (22-29); Chloride 100 mmol/L (98-107); Globulin 6.1 g/dL (2.4-3.5); Glucose 167 mg/dL (70-105); Lipase 82 U/L (8-78); Potassium 3.9 mmol/L (3.5-5.1); Protein, Total 9.9 g/dL (6.0-8.3); Sodium 140 mmol/L (136-145)
[2021-08-10 07:12] LABS: #Basophils 0.1 thou/uL (0.0-0.2); #Eosinphils 0.1 thou/uL (0.0-0.7); #Lymphocytes 1.7 thou/uL (1.20-3.40); #Monocytes 0.6 thou/uL (0.11-0.59); #Neutrophils 3.4 thou/uL (1.40-6.50); %Basophils 1.9 % (0.0-1.0); %Eosinophils 1.8 % (0.0-10.0); %Lymphocytes 28.9 % (21.0-51.0); %Monocytes 9.8 % (0.0-10.0); %Neutrophils 57.5 % (42.0-75.0); Hemoglobin 13.2 g/dL (12.0-16.0); Mean Corpuscular HGB CONC 30.4 g/dL (32.0-36.0); Mean Corpuscular Hemoglobin 20.5 pg (27.0-31.0); Mean Corpuscular Volume 67.5 fL (78.0-98.0); Mean Platelet Volume 8.3 fL (7.4-10.4); Platelet Count 283 thou/uL (130-400); RBC Distribution Width 17.1 % (11.5-14.5); Red Blood Cell (RBC) Count 6.46 mill/uL (4.20-5.40); White Blood Cell (WBC) Count 5.9 thou/uL (4.8-10.8)
[2021-08-10 07:29] LABS: Anisocytosis SLIGHT = 6-15 cells (100X) (0-5/hpf); MDiff Complete? YES; Microcytosis MODERATE=15-30 cells (100X) (0-5/hpf); Platelet Morphology Comment Appears Adequate
== END 2021-08-10 06:44 | disposition home or self-care (01) ==
LOC: BURERS 03:45
DX: I16.9 Hypertensive crisis, unspecified (principal); R10.31 Right lower quadrant pain; R10.32 Left lower quadrant pain; R11.10 Vomiting, unspecified; E11.9 Type 2 diabetes mellitus without complications; I10 Essential (primary) hypertension
CPT/HCPCS: 36415; 80053; 82553; 83690; 84484; 85025; 93005; 96372; J2550

== ENCOUNTER 2021-08-26 22:42 | Emergency (ER) | payer OTHER ==
[2021-08-26] MEDS ORDERED: Acetaminophen 500 MG TAB ONE (23:57)
[2021-08-27] MEDS ORDERED: Nitroglycerin 50 MG/250 ML BOT 250 ML ONE (00:12)
[2021-08-27] MEDS ORDERED: Sodium Chloride 0.9% 100 ML ONE (00:12)
[2021-08-27] MEDS ORDERED: Piperacillin/Tazobactam 3.375 GM in Sodium Chloride 0.9% 100 ML IVPB SCH (00:15)
[2021-08-27 00:23] LABS: #Basophils 0.1 thou/uL (0.0-0.2); #Lymphocytes 1.7 thou/uL (1.20-3.40); #Monocytes 1.3 thou/uL (0.11-0.59); #Neutrophils 11.6 thou/uL (1.40-6.50); %Basophils 0.7 % (0.0-1.0); %Eosinophils 0.2 % (0.0-10.0); %Lymphocytes 11.6 % (21.0-51.0); %Monocytes 8.5 % (0.0-10.0); %Neutrophils 79.1 % (42.0-75.0); Hemoglobin 8.2 g/dL (12.0-16.0); Mean Corpuscular HGB CONC 31.3 g/dL (32.0-36.0); Mean Corpuscular Volume 67.2 fL (78.0-98.0); Mean Platelet Volume 7.8 fL (7.4-10.4); Platelet Count 272 thou/uL (130-400); RBC Distribution Width 17.6 % (11.5-14.5); Red Blood Cell (RBC) Count 3.89 mill/uL (4.20-5.40); White Blood Cell (WBC) Count 14.7 thou/uL (4.8-10.8)
[2021-08-27 00:32] LABS: ALT (SGPT) 15 U/L (8-55); AST (SGOT) 19 U/L (5-34); Albumin 2.9 g/dL (3.5-5.0); Alkaline Phosphatase 110 U/L (40-110); Anion Gap 17 mmol/L (10-20); BUN (Urea Nitrogen) 19 mg/dL (7.0-18.7); Bilirubin, Total 0.7 mg/dL (0.2-1.2); CRP (Inflammatory) 21.44 mg/dL (= or < 0.5); Calc. Creatinine Clearance 0 mL/min (70-130); Calcium 8.5 mg/dL (7.8-10.44); Carbon Dioxide 23 mmol/L (22-29); Chloride 97 mmol/L (98-107); Glucose 248 mg/dL (70-105); Protein, Total 7.9 g/dL (6.0-8.3); Sodium 133 mmol/L (136-145)
[2021-08-27] MEDS ORDERED: Morphine 4 MG/ML VIAL ONE ×2 (01:22→02:51)
[2021-08-27 03:27] LABS: SARS-CoV-2 NAA Rapid Test Not Detected (NotDetected)
== END 2021-08-27 03:10 | disposition short-term general hospital (02) ==
LOC: BURERS 22:42
DX: L03.116 Cellulitis of left lower limb (principal); E11.9 Type 2 diabetes mellitus without complications; I10 Essential (primary) hypertension; Z20.822 Contact with and (suspected) exposure to COVID-19; Z79.4 Long term (current) use of insulin; Z79.84 Long term (current) use of oral hypoglycemic drugs; Z79.899 Other long term (current) drug therapy
CPT/HCPCS: 36415; 80053; 83605; 85025; 86140; 87040; 87070; 87077; 87186; 87205; 96374; 96375; 96376; J2270; J2543; J3370; J3490; U0002

== ENCOUNTER 2021-09-04 15:06 | Emergency (ER) | payer OTHER | END 2021-09-04 15:21 | disposition left against medical advice (07) | LOC: BURERS 15:06 | DX: Z53.21 Procedure and treatment not carried out due to patient leaving prior to being seen by health care provider (principal) ==

== ENCOUNTER 2021-09-04 16:45 | Emergency (ER) | payer OTHER | END 2021-09-04 17:53 | disposition home or self-care (01) | LOC: BURERS 16:45 | DX: Z46.89 Encounter for fitting and adjustment of other specified devices (principal); R11.0 Nausea; E11.9 Type 2 diabetes mellitus without complications; I10 Essential (primary) hypertension; Z79.4 Long term (current) use of insulin; Z79.84 Long term (current) use of oral hypoglycemic drugs; Z79.899 Other long term (current) drug therapy | CPT/HCPCS: 99283 ==

== ENCOUNTER 2021-09-13 16:46 | Emergency (ER) | payer OTHER ==
[2021-09-13] MEDS ORDERED: Iopamidol 370 76% 100 ML VIAL FS ONE (16:47)
[2021-09-13] MEDS ORDERED: niCARdipine 25 MG/10 ML VIAL FS ONE (16:47)
[2021-09-13] MEDS ORDERED: Promethazine HCl 25 MG/ML VIAL ONE ×2 (17:14→22:05)
[2021-09-13 17:33] LABS: #Basophils 0.1 thou/uL (0.0-0.2); #Eosinphils 0.1 thou/uL (0.0-0.7); #Monocytes 0.5 thou/uL (0.11-0.59); #Neutrophils 3.4 thou/uL (1.40-6.50); %Basophils 1.4 % (0.0-1.0); %Eosinophils 1.2 % (0.0-10.0); %Lymphocytes 20.1 % (21.0-51.0); %Neutrophils 68.3 % (42.0-75.0); ALT (SGPT) Less than 7 U/L (8-55); AST (SGOT) 13 U/L (5-34); Albumin 3.2 g/dL (3.5-5.0); Alkaline Phosphatase 108 U/L (40-110); Anion Gap 17 mmol/L (10-20); Anisocytosis SLIGHT = 6-15 cells (100X) (0-5/hpf); BUN (Urea Nitrogen) 15 mg/dL (7.0-18.7); Bilirubin, Total 0.5 mg/dL (0.2-1.2); Calc. Creatinine Clearance 0 mL/min (70-130); Calcium 8.6 mg/dL (7.8-10.44); Carbon Dioxide 25 mmol/L (22-29); Chloride 98 mmol/L (98-107); Glucose 266 mg/dL (70-105); Hemoglobin 8.9 g/dL (12.0-16.0); Hypochromia MODERATE=16-30 cells (100X) (0-5/hpf); Lipase 14 U/L (8-78); MDiff Complete? YES; Mean Corpuscular Hemoglobin 20.4 pg (27.0-31.0); Mean Corpuscular Volume 68.1 fL (78.0-98.0); Mean Platelet Volume 8.8 fL (7.4-10.4); Microcytosis MODERATE=15-30 cells (100X) (0-5/hpf); Ovalocytes SLIGHT = 2-5 cells (100X) (0-1/hpf); Platelet Count 184 thou/uL (130-400); Poikilocytosis SLIGHT = 6-15 cells (100X) (0-5/hpf); Potassium 4.2 mmol/L (3.5-5.1); Protein, Total 8.2 g/dL (6.0-8.3); RBC Distribution Width 18.8 % (11.5-14.5); Red Blood Cell (RBC) Count 4.35 mill/uL (4.20-5.40); Schistocytes SLIGHT = 2-5 cells (100X) (0-1/hpf); Sodium 136 mmol/L (136-145); Tear Drops SLIGHT = 2-5 cells (100X) (0-1/hpf)
[2021-09-13 17:57] LABS: CKMB 2.2 ng/mL (0-6.6)
[2021-09-13] MEDS ORDERED: Fentanyl 100 MCG/2 ML VIAL ONE ×3 (20:02→22:55)
[2021-09-13] MEDS ORDERED: Labetalol HCl 100 MG/20 ML VIAL ONE (21:28)
[2021-09-13] MEDS ORDERED: niCARdipine 20MG In NaCl 20 MG/200 ML BAG ONE (21:53)
[2021-09-13 21:55] LABS: Bilirubin Negative (Negative); Blood, Urine Trace (Negative); Clarity Clear (Clear); Glucose, Urine (Dipstick) 100 mg/dL (Negative); Ketone, Urine Negative (Negative); Leukocyte Negative (Negative); Nitrite Negative (Negative); Protein, Urine (Dipstick) 100 mg/dL (Neg-Trace); Urobilinogen 0.2 mg/dL (Less than 2); pH, Urine 7.5 (5.0-9.0)
[2021-09-13 22:02] LABS: Bacteria/HPF Rare-Few HPF (None Seen); RBC/HPF 0-3 HPF (0-3); Squamous Epithelial 0-3 HPF (0-3); WBC/HPF 0-3 HPF (0-3)
== END 2021-09-13 23:00 | disposition short-term general hospital (02) ==
LOC: BURERS 16:46
DX: R07.9 Chest pain, unspecified (principal); I10 Essential (primary) hypertension; E11.9 Type 2 diabetes mellitus without complications; R77.8 Other specified abnormalities of plasma proteins; Z79.4 Long term (current) use of insulin; Z79.84 Long term (current) use of oral hypoglycemic drugs; Z79.899 Other long term (current) drug therapy
CPT/HCPCS: 36415; 71045; 71275; 74174; 80053; 81003; 81015; 82553; 83605; 83690; 84484; 85025; 85379; 93005; 94760; 96374; 96375; 96376; J2550; J3010; Q9967

== ENCOUNTER 2021-09-22 23:35 | Emergency (ER) | payer OTHER ==
[2021-09-23 01:59] LABS: #Basophils 0.1 thou/uL (0.0-0.2); #Eosinphils 0.1 thou/uL (0.0-0.7); #Lymphocytes 2.4 thou/uL (1.20-3.40); #Monocytes 0.7 thou/uL (0.11-0.59); #Neutrophils 2.6 thou/uL (1.40-6.50); %Basophils 2.1 % (0.0-1.0); %Eosinophils 2.1 % (0.0-10.0); %Lymphocytes 40.2 % (21.0-51.0); %Monocytes 11.8 % (0.0-10.0); %Neutrophils 43.7 % (42.0-75.0); Hemoglobin 12.1 g/dL (12.0-16.0); Mean Corpuscular HGB CONC 31.7 g/dL (32.0-36.0); Mean Corpuscular Hemoglobin 21.2 pg (27.0-31.0); Mean Platelet Volume 8.2 fL (7.4-10.4); Platelet Count 263 thou/uL (130-400); RBC Distribution Width 19.1 % (11.5-14.5); Red Blood Cell (RBC) Count 5.71 mill/uL (4.20-5.40); White Blood Cell (WBC) Count 5.9 thou/uL (4.8-10.8)
[2021-09-23 02:01] LABS: Hypochromia SLIGHT = 6-15 cells (100X) (0-5/hpf); MDiff Complete? YES; Microcytosis SLIGHT = 6-15 cells (100X) (0-5/hpf); Platelet Morphology Comment Appears Adequate; Poikilocytosis SLIGHT = 6-15 cells (100X) (0-5/hpf)
[2021-09-23 02:13] LABS: Bilirubin Negative (Negative); Blood, Urine Trace (Negative); Clarity Clear (Clear); Glucose, Urine (Dipstick) 100 mg/dL (Negative); Ketone, Urine Negative (Negative); Leukocyte Negative (Negative); Nitrite Negative (Negative); Protein, Urine (Dipstick) > or equal to 300 mg/dL (Neg-Trace); Urobilinogen 0.2 mg/dL (Less than 2); pH, Urine 6.5 (5.0-9.0)
[2021-09-23 02:15] LABS: Bacteria/HPF Rare-Few HPF (None Seen); Mucous/LPF 2+ LPF (<2+); RBC/HPF 0-3 HPF (0-3); Squamous Epithelial 0-3 HPF (0-3); WBC/HPF 0-3 HPF (0-3)
[2021-09-23] MEDS ORDERED: Lisinopril 20 MG TAB ONE (02:17)
[2021-09-23] MEDS ORDERED: Metoprolol Tartrate 5 MG/5 ML VIAL ONE (02:18)
[2021-09-23] MEDS ORDERED: Promethazine 25 MG TAB ONE (02:19)
[2021-09-23] MEDS ORDERED: Morphine 4 MG/ML VIAL ONE (02:23)
[2021-09-23] MEDS ORDERED: Labetalol HCl 200 MG TAB PO SCH (02:30)
[2021-09-23 02:51] LABS: ALT (SGPT) 12 U/L (8-55); AST (SGOT) 18 U/L (5-34); Albumin 3.7 g/dL (3.5-5.0); Alkaline Phosphatase 125 U/L (40-110); Anion Gap 20 mmol/L (10-20); BUN (Urea Nitrogen) 21 mg/dL (7.0-18.7); Bilirubin, Total 0.3 mg/dL (0.2-1.2); Calc. Creatinine Clearance 0 mL/min (70-130); Calcium 9.6 mg/dL (7.8-10.44); Carbon Dioxide 23 mmol/L (22-29); Chloride 99 mmol/L (98-107); Globulin 5.6 g/dL (2.4-3.5); Glucose 204 mg/dL (70-105); Lipase 37 U/L (8-78); Potassium 4.2 mmol/L (3.5-5.1); Protein, Total 9.3 g/dL (6.0-8.3); Sodium 138 mmol/L (136-145)
== END 2021-09-23 03:15 | disposition home or self-care (01) ==
LOC: BURERS 23:35
DX: R10.31 Right lower quadrant pain (principal); G89.4 Chronic pain syndrome; I10 Essential (primary) hypertension; E11.9 Type 2 diabetes mellitus without complications; Z79.899 Other long term (current) drug therapy; Z79.4 Long term (current) use of insulin
CPT/HCPCS: 74176; 80053; 81003; 81015; 83690; 85025; 94760; 96372; J2270; Q0169

== ENCOUNTER 2021-09-23 12:24 | Emergency (ER) | payer OTHER | END 2021-09-23 12:55 | disposition home or self-care (01) | LOC: BURERS 12:24 | DX: R11.2 Nausea with vomiting, unspecified (principal); I10 Essential (primary) hypertension; E11.9 Type 2 diabetes mellitus without complications; G89.29 Other chronic pain; Z79.4 Long term (current) use of insulin; Z79.899 Other long term (current) drug therapy; R10.31 Right lower quadrant pain; G89.4 Chronic pain syndrome | CPT/HCPCS: 74176; 80053; 81003; 81015; 83690; 85025; 94760; 96372; 99283; J2270; Q0169 ==

== ENCOUNTER 2021-09-25 23:28 | Emergency (ER) | payer OTHER | END 2021-09-26 00:02 | disposition home or self-care (01) | LOC: BURERS 23:28 | DX: S98.112D Complete traumatic amputation of left great toe, subsequent encounter (principal); I10 Essential (primary) hypertension; E11.9 Type 2 diabetes mellitus without complications; E78.5 Hyperlipidemia, unspecified | CPT/HCPCS: 99282 ==

== ENCOUNTER 2021-09-28 09:53 | Emergency (ER) | payer OTHER ==
[2021-09-28] MEDS ORDERED: Morphine 4 MG/ML VIAL ONE ×2 (10:36→11:36)
[2021-09-28 10:45] LABS: #Basophils 0.1 thou/uL (0.0-0.2); #Eosinphils 0.1 thou/uL (0.0-0.7); #Lymphocytes 2.2 thou/uL (1.20-3.40); #Monocytes 0.6 thou/uL (0.11-0.59); #Neutrophils 4.8 thou/uL (1.40-6.50); %Basophils 0.9 % (0.0-1.0); %Eosinophils 1.2 % (0.0-10.0); %Lymphocytes 28.5 % (21.0-51.0); %Monocytes 7.5 % (0.0-10.0); %Neutrophils 61.9 % (42.0-75.0); Hemoglobin 10.6 g/dL (12.0-16.0); Mean Corpuscular HGB CONC 29.8 g/dL (32.0-36.0); Mean Corpuscular Hemoglobin 20.4 pg (27.0-31.0); Mean Corpuscular Volume 68.4 fL (78.0-98.0); Mean Platelet Volume 7.9 fL (7.4-10.4); Platelet Count 314 thou/uL (130-400); RBC Distribution Width 19.8 % (11.5-14.5); Red Blood Cell (RBC) Count 5.21 mill/uL (4.20-5.40); White Blood Cell (WBC) Count 7.7 thou/uL (4.8-10.8)
[2021-09-28 10:49] LABS: Bilirubin Negative (Negative); Blood, Urine Trace (Negative); Clarity Clear (Clear); Glucose, Urine (Dipstick) Negative (Negative); Ketone, Urine Negative (Negative); Leukocyte Negative (Negative); Nitrite Negative (Negative); Protein, Urine (Dipstick) > or equal to 300 mg/dL (Neg-Trace); Urobilinogen 0.2 mg/dL (Less than 2); pH, Urine 7.5 (5.0-9.0)
[2021-09-28 10:56] LABS: Bacteria/HPF Rare-Few HPF (None Seen); RBC/HPF 0-3 HPF (0-3); Squamous Epithelial 0-3 HPF (0-3); WBC/HPF 0-3 HPF (0-3)
[2021-09-28 10:57] LABS: ALT (SGPT) 13 U/L (8-55); AST (SGOT) 17 U/L (5-34); Albumin 3.9 g/dL (3.5-5.0); Alkaline Phosphatase 102 U/L (40-110); Anion Gap 18 mmol/L (10-20); BUN (Urea Nitrogen) 20 mg/dL (7.0-18.7); Bilirubin, Total 0.4 mg/dL (0.2-1.2); Calc. Creatinine Clearance 0 mL/min (70-130); Carbon Dioxide 26 mmol/L (22-29); Chloride 99 mmol/L (98-107); Globulin 5.3 g/dL (2.4-3.5); Glucose 109 mg/dL (70-105); Lipase 35 U/L (8-78); Potassium 4.2 mmol/L (3.5-5.1); Protein, Total 9.2 g/dL (6.0-8.3); Sodium 139 mmol/L (136-145)
[2021-09-28 10:59] LABS: BHCG - Serum Negative (NEGATIVE); Pregs Control Background? CLEAR/WHITE (CLR/WHITE); Pregs Control Bar Appear? YES (CONTROL BAR)
[2021-09-28 11:07] LABS: Anisocytosis SLIGHT = 6-15 cells (100X) (0-5/hpf); MDiff Complete? YES; Microcytosis MODERATE=15-30 cells (100X) (0-5/hpf); Platelet Morphology Comment Appears Adequate
[2021-09-28 11:13] LABS: CKMB 2.6 ng/mL (0-6.6)
[2021-09-28] MEDS ORDERED: Promethazine HCl 25 MG/ML VIAL ONE (11:14)
[2021-09-28] MEDS ORDERED: cloNIDine 0.1 MG TAB ONE (11:59)
[2021-09-28] MEDS ORDERED: Labetalol HCl 100 MG/20 ML VIAL ONE (12:56)
[2021-09-28] MEDS ORDERED: niCARdipine 25 MG/10 ML VIAL ONE (13:35)
== END 2021-09-28 14:00 | disposition short-term general hospital (02) ==
LOC: BURERS 09:53
DX: I10 Essential (primary) hypertension (principal); R00.0 Tachycardia, unspecified; E11.9 Type 2 diabetes mellitus without complications; E78.5 Hyperlipidemia, unspecified; Z79.4 Long term (current) use of insulin; Z79.899 Other long term (current) drug therapy
CPT/HCPCS: 74176; 80053; 81003; 81015; 82553; 83605; 83690; 83880; 84484; 84703; 85025; 93005; 96374; 96375; 96376; J2270; J2550

== ENCOUNTER 2022-01-10 22:46 | Emergency (ER) | payer OTHER ==
[2022-01-10] MEDS ORDERED: Lidocaine 2% PF 5 ML VIAL ONE ×2 (23:10→23:32)
[2022-01-10] MEDS ORDERED: Bacitracin 1 PK ONE (23:11)
[2022-01-10] MEDS ORDERED: Cephalexin 250 MG CAP ONE (23:52)
== END 2022-01-10 23:55 | disposition home or self-care (01) ==
LOC: BURERS 22:46
DX: L03.115 Cellulitis of right lower limb (principal); L02.611 Cutaneous abscess of right foot; E11.9 Type 2 diabetes mellitus without complications; I11.0 Hypertensive heart disease with heart failure; I50.9 Heart failure, unspecified; E78.00 Pure hypercholesterolemia, unspecified; Z79.4 Long term (current) use of insulin; Z79.899 Other long term (current) drug therapy
CPT/HCPCS: 10060; J2001

== ENCOUNTER 2022-01-11 17:25 | Emergency (ER) | payer OTHER | END 2022-01-11 18:28 | disposition home or self-care (01) | LOC: BURERS 17:25 | DX: Z48.817 Encounter for surgical aftercare following surgery on the skin and subcutaneous tissue (principal); E11.9 Type 2 diabetes mellitus without complications; I11.0 Hypertensive heart disease with heart failure; I50.9 Heart failure, unspecified; E78.00 Pure hypercholesterolemia, unspecified | CPT/HCPCS: 99282 ==

== ENCOUNTER 2022-02-13 06:29 | Emergency (ER) | payer OTHER ==
[2022-02-13 07:13] LABS: Bilirubin Negative (Negative); Blood, Urine Trace (Negative); Clarity Clear (Clear); Glucose, Urine (Dipstick) 250 mg/dL (Negative); Ketone, Urine Negative (Negative); Leukocyte Negative (Negative); Nitrite Negative (Negative); Protein, Urine (Dipstick) 300 mg/dL (Neg-Trace); Urobilinogen 0.2 mg/dL (Less than 2); pH, Urine 8.5 (5.0-9.0)
[2022-02-13 07:19] LABS: Bacteria/HPF None Seen HPF (None Seen); RBC/HPF 0-3 HPF (0-3); Squamous Epithelial 0-3 HPF (0-3); WBC/HPF None Seen HPF (0-3)
[2022-02-13 07:27] LABS: #Basophils 0.1 thou/uL (0.0-0.2); #Eosinphils 0.1 thou/uL (0.0-0.7); #Lymphocytes 0.6 thou/uL (1.20-3.40); #Monocytes 0.4 thou/uL (0.11-0.59); #Neutrophils 6.4 thou/uL (1.40-6.50); %Basophils 1.1 % (0.0-1.0); %Eosinophils 1.3 % (0.0-10.0); %Lymphocytes 7.8 % (21.0-51.0); %Monocytes 5.5 % (0.0-10.0); %Neutrophils 84.3 % (42.0-75.0); Hemoglobin 10.8 g/dL (12.0-16.0); Mean Corpuscular HGB CONC 31.5 g/dL (32.0-36.0); Mean Corpuscular Hemoglobin 23.6 pg (27.0-31.0); Mean Corpuscular Volume 74.9 fl (78.0-98.0); Mean Platelet Volume 7.7 fL (7.4-10.4); Platelet Count 223 thou/uL (130-400); RBC Distribution Width 16.6 % (11.5-14.5); Red Blood Cell (RBC) Count 4.58 mill/uL (4.20-5.40); White Blood Cell (WBC) Count 7.6 thou/uL (4.8-10.8)
[2022-02-13] MEDS ORDERED: Hyoscyamine Sulfate SL 0.125 mg Tablet ONE (07:31)
[2022-02-13 07:32] LABS: ALT (SGPT) Less than 7 U/L (8-55); AST (SGOT) 15 U/L (5-34); Alkaline Phosphatase 205 U/L (40-110); Anion Gap 20 mmol/L (10-20); BUN (Urea Nitrogen) 28 mg/dL (7.0-18.7); Calc. Creatinine Clearance 0 mL/min (70-130); Calcium 9.6 mg/dL (7.8-10.44); Carbon Dioxide 24 mmol/L (22-29); Chloride 98 mmol/L (98-107); Estimated GFR 35; Globulin 5.4 g/dL (2.4-3.5); Glucose 248 mg/dL (70-105); Lipase 23 U/L (8-78); Potassium 4.1 mmol/L (3.5-5.1); Protein, Total 9.4 g/dL (6.0-8.3); Sodium 138 mmol/L (136-145)
[2022-02-13 07:46] LABS: Platelet Morphology Comment Appears Adequate; RBC Morphology Normal
[2022-02-13 07:47] LABS: MDiff Complete? YES
[2022-02-13 07:50] LABS: CKMB 2.1 ng/mL (0-6.6)
[2022-02-13 08:41] LABS: Amphetamine Not Detected (NotDetected); Barbiturates Screen Not Detected (NotDetected); Benzodiazepine Screen Not Detected (NotDetected); Cocaine Metabolite Screen Not Detected (NotDetected); Medtox Control Line Valid? VALID (VALID); Methadone Not Detected (NotDetected); Methamphetamine Not Detected (NotDetected); Opiate Screen Not Detected (NotDetected); Oxycodone Screen Not Detected (NotDetected); Phencyclidine (PCP) Not Detected (NotDetected); THC/Cannabinoid Screen Not Detected (NotDetected); Tricyclic Screen Not Detected (NotDetected)
[2022-02-13] MEDS ORDERED: Magnesium 2 GM/50 ML BAG (IN WATER) ONE (08:45)
== END 2022-02-13 08:58 | disposition home or self-care (01) ==
LOC: BURERS 06:29
DX: S80.02XA Contusion of left knee, initial encounter (principal); K59.00 Constipation, unspecified; E11.9 Type 2 diabetes mellitus without complications; E03.9 Hypothyroidism, unspecified; I11.0 Hypertensive heart disease with heart failure; I50.9 Heart failure, unspecified; E78.00 Pure hypercholesterolemia, unspecified; Z79.4 Long term (current) use of insulin; Z79.899 Other long term (current) drug therapy; W19.XXXA Unspecified fall, initial encounter
CPT/HCPCS: 80053; 80306; 81003; 81015; 82553; 83690; 84484; 85025; J3475

== ENCOUNTER 2022-02-22 19:56 | Emergency (ER) | payer OTHER ==
[2022-02-22] MEDS ORDERED: Morphine 4 MG/ML VIAL ONE (21:30)
[2022-02-23] MEDS ORDERED: cloNIDine 0.1 MG TAB ONE (00:16)
[2022-02-23] MEDS ORDERED: Acetaminophen/Codeine 30-300mg Tablet ONE (00:16)
== END 2022-02-23 00:21 | disposition home or self-care (01) ==
LOC: BURERS 19:56
DX: M79.605 Pain in left leg (principal); I11.0 Hypertensive heart disease with heart failure; I50.9 Heart failure, unspecified; E11.9 Type 2 diabetes mellitus without complications; E03.9 Hypothyroidism, unspecified; E78.00 Pure hypercholesterolemia, unspecified
CPT/HCPCS: 71045; 93005; 96372; J2270

== ENCOUNTER 2022-03-08 14:24 | Emergency (ER) | payer OTHER | END 2022-03-08 15:35 | disposition home or self-care (01) | LOC: BURERS 14:24 | DX: B34.9 Viral infection, unspecified (principal); E11.9 Type 2 diabetes mellitus without complications; E03.9 Hypothyroidism, unspecified; I11.0 Hypertensive heart disease with heart failure; I50.9 Heart failure, unspecified; Z79.899 Other long term (current) drug therapy; E78.00 Pure hypercholesterolemia, unspecified | CPT/HCPCS: 87804; 99283 ==

== ENCOUNTER 2022-03-11 14:25 | Emergency (ER) | payer OTHER | END 2022-03-11 15:49 | disposition home or self-care (01) | LOC: BURERS 14:25 | DX: B34.9 Viral infection, unspecified (principal); G89.4 Chronic pain syndrome; Z20.822 Contact with and (suspected) exposure to COVID-19; E11.9 Type 2 diabetes mellitus without complications; E03.9 Hypothyroidism, unspecified; E78.00 Pure hypercholesterolemia, unspecified; I11.0 Hypertensive heart disease with heart failure; I50.9 Heart failure, unspecified; Z79.899 Other long term (current) drug therapy | CPT/HCPCS: 71045; U0003; U0005 ==

== ENCOUNTER 2022-03-29 22:07 | Emergency (ER) | payer OTHER ==
[2022-03-29] MEDS ORDERED: HYDROmorphone 0.5 MG/0.5 ML SYRINGE ONE (22:53)
[2022-03-29 23:07] LABS: #Basophils 0.1 thou/uL (0.0-0.2); #Eosinphils 0.1 thou/uL (0.0-0.7); #Lymphocytes 1.2 thou/uL (1.20-3.40); #Monocytes 0.5 thou/uL (0.11-0.59); #Neutrophils 5.3 thou/uL (1.40-6.50); %Basophils 1.2 % (0.0-1.0); %Eosinophils 0.8 % (0.0-10.0); %Lymphocytes 16.6 % (21.0-51.0); %Monocytes 7.4 % (0.0-10.0); Hemoglobin 9.8 g/dL (12.0-16.0); Mean Corpuscular HGB CONC 30.5 g/dL (32.0-36.0); Mean Corpuscular Hemoglobin 24.2 pg (27.0-31.0); Mean Corpuscular Volume 79.2 fl (78.0-98.0); Mean Platelet Volume 7.7 fL (7.4-10.4); Platelet Count 220 10x3/uL (130-400); Red Blood Cell (RBC) Count 4.05 mill/uL (4.20-5.40); White Blood Cell (WBC) Count 7.1 10x3/uL (4.8-10.8)
[2022-03-29 23:18] LABS: ALT (SGPT) 17 U/L (8-55); AST (SGOT) 23 U/L (5-34); Albumin 2.9 g/dL (3.5-5.0); Alkaline Phosphatase 147 U/L (40-110); Anion Gap 17 mmol/L (10-20); BUN (Urea Nitrogen) 14 mg/dL (7.0-18.7); Bilirubin, Total 0.6 mg/dL (0.2-1.2); Calc. Creatinine Clearance 0 mL/min (70-130); Carbon Dioxide 23 mmol/L (22-29); Chloride 99 mmol/L (98-107); Estimated GFR 30; Globulin 5.1 g/dL (2.4-3.5); Glucose 189 mg/dL (70-105); Magnesium 1.3 mg/dL (1.6-2.6); Potassium 3.9 mmol/L (3.5-5.1); Sodium 135 mmol/L (136-145)
[2022-03-29 23:30] LABS: CRP (Inflammatory) 8.51 mg/dL (= or < 0.5)
[2022-03-29 23:42] LABS: INR-International Normal Ratio 1.2; Prothrombin Time 15.4 sec (12.0-14.7)
[2022-03-29 23:50] LABS: CKMB 2.1 ng/mL (0-6.6)
[2022-03-30] MEDS ORDERED: Piperacillin/Tazobactam 4.5 GM VIAL ONE (00:09)
[2022-03-30] MEDS ORDERED: Furosemide 40 MG/4 ML VIAL ONE (00:09)
[2022-03-30] MEDS ORDERED: Sodium Chloride 0.9% 100 ML ONE ×2 (00:10→13:13)
[2022-03-30] MEDS ORDERED: HYDROmorphone 0.5 MG/0.5 ML SYRINGE ONE ×4 (00:58→14:08)
[2022-03-30] MEDS ORDERED: tiZANidine HCl 4 MG TAB PO PRN (01:19)
[2022-03-30 02:35] LABS: Lactic Acid 1.7 mmol/L (0.5-2.2)
[2022-03-30] MEDS ORDERED: cefTRIAXone\\ROCEPHIN 2 GM VIAL ONE (13:12)
[2022-03-30] MEDS ORDERED: Vancomycin 1 GM VIAL ONE (13:12)
[2022-03-30] MEDS ORDERED: Cefepime 1 GM VIAL ONE (13:14)
[2022-03-30] MEDS ORDERED: Cefepime 2 GM VIAL ONE (13:15)
[2022-03-30] MEDS ORDERED: Gabapentin 300 MG CAP ONE (13:35)
[2022-03-30] MEDS ORDERED: cloNIDine 0.1 MG TAB ONE (13:52)
== END 2022-03-30 15:52 | disposition short-term general hospital (02) ==
LOC: BURERS 22:07
DX: J90 Pleural effusion, not elsewhere classified (principal); E11.9 Type 2 diabetes mellitus without complications; I11.0 Hypertensive heart disease with heart failure; I50.9 Heart failure, unspecified; E78.00 Pure hypercholesterolemia, unspecified; Z79.899 Other long term (current) drug therapy
CPT/HCPCS: 36415; 71045; 71250; 80053; 82553; 83605; 83690; 83735; 84484; 85025; 85610; 85730; 86140; 87040; 93005; 96365; 96367; 96375; 96376; J0692; J0696; J1170; J1940; J2543; J3370; J3490

== ENCOUNTER 2022-05-13 21:23 | Emergency (ER) | payer OTHER ==
[2022-05-13] MEDS ORDERED: cloNIDine 0.1 MG TAB ONE (21:55)
[2022-05-13 22:46] LABS: #Basophils 0.1 thou/uL (0.0-0.2); #Lymphocytes 1.1 thou/uL (1.20-3.40); #Monocytes 0.5 thou/uL (0.11-0.59); %Basophils 1.7 % (0.0-1.0); %Eosinophils 0.5 % (0.0-10.0); %Lymphocytes 14.1 % (21.0-51.0); %Monocytes 6.9 % (0.0-10.0); %Neutrophils 76.9 % (42.0-75.0); Mean Corpuscular HGB CONC 31.1 g/dL (32.0-36.0); Mean Corpuscular Hemoglobin 24.3 pg (27.0-31.0); Mean Corpuscular Volume 77.9 fl (78.0-98.0); Mean Platelet Volume 7.3 fL (7.4-10.4); Platelet Count 210 10x3/uL (130-400); RBC Distribution Width 18.9 % (11.5-14.5); White Blood Cell (WBC) Count 7.8 10x3/uL (4.8-10.8)
[2022-05-13 22:54] LABS: ALT (SGPT) 25 U/L (8-55); AST (SGOT) 24 U/L (5-34); Albumin 3.6 g/dL (3.5-5.0); Alkaline Phosphatase 133 U/L (40-110); Anion Gap 14 mmol/L (10-20); BUN (Urea Nitrogen) 17 mg/dL (7.0-18.7); Bilirubin, Total 1.5 mg/dL (0.2-1.2); Calc. Creatinine Clearance 0 mL/min (70-130); Calcium 8.4 mg/dL (7.8-10.44); Carbon Dioxide 22 mmol/L (22-29); Chloride 104 mmol/L (98-107); Estimated GFR 50; Globulin 3.6 g/dL (2.4-3.5); Glucose 262 mg/dL (70-105); Potassium 3.9 mmol/L (3.5-5.1); Protein, Total 7.2 g/dL (6.0-8.3); Sodium 136 mmol/L (136-145)
[2022-05-13 23:31] LABS: CKMB 1.7 ng/mL (0-6.6)
[2022-05-13 23:59] LABS: Bilirubin Negative (Negative); Blood, Urine Trace (Negative); Clarity Clear (Clear); Glucose, Urine (Dipstick) >=1000 mg/dL (Negative); Ketone, Urine Negative (Negative); Leukocyte Negative (Negative); Nitrite Negative (Negative); Protein, Urine (Dipstick) 100 mg/dL (Neg-Trace); Specific Gravity, Urine 1.015 (1.005-1.030); Urobilinogen 0.2 mg/dL (Less than 2)
[2022-05-14 00:03] LABS: Bacteria/HPF Rare-Few HPF (None Seen); RBC/HPF 0-3 HPF (0-3); Squamous Epithelial 0-3 HPF (0-3); WBC/HPF 0-3 HPF (0-3)
[2022-05-14 00:04] LABS: Mucous/LPF 1+ LPF (<2+)
[2022-05-14] MEDS ORDERED: cefTRIAXone\\ROCEPHIN 2 GM VIAL ONE (00:05)
[2022-05-14] MEDS ORDERED: Furosemide 40 MG/4 ML VIAL ONE (00:43)
[2022-05-14] MEDS ORDERED: Acetaminophen 500 MG TAB ONE (00:44)
== END 2022-05-14 01:25 | disposition short-term general hospital (02) ==
LOC: BURERS 21:23
DX: I11.0 Hypertensive heart disease with heart failure (principal); I50.9 Heart failure, unspecified; J90 Pleural effusion, not elsewhere classified; J96.91 Respiratory failure, unspecified with hypoxia; E11.65 Type 2 diabetes mellitus with hyperglycemia; Z79.899 Other long term (current) drug therapy; Z79.4 Long term (current) use of insulin
CPT/HCPCS: 71045; 71275; 80053; 81003; 81015; 82553; 83605; 83880; 84484; 85025; 85379; 87040; 87077; 87086; 93005; 96365; 96375; J0696; J1940

== ENCOUNTER 2022-06-20 21:10 | Emergency (ER) | payer OTHER | END 2022-06-20 21:45 | disposition home or self-care (01) | LOC: BURERS 21:10 | DX: B37.2 Candidiasis of skin and nail (principal); K04.7 Periapical abscess without sinus; K02.9 Dental caries, unspecified; I25.10 Atherosclerotic heart disease of native coronary artery without angina pectoris; Z79.4 Long term (current) use of insulin; I12.0 Hypertensive chronic kidney disease with stage 5 chronic kidney disease or end stage renal disease; E11.22 Type 2 diabetes mellitus with diabetic chronic kidney disease; N18.6 End stage renal disease; Z79.899 Other long term (current) drug therapy | CPT/HCPCS: 99283 ==

== ENCOUNTER 2022-08-17 23:42 | Emergency (ER) | payer OTHER | END 2022-08-18 00:16 | disposition home or self-care (01) | LOC: BURERS 23:42 | DX: B37.31 Acute candidiasis of vulva and vagina (principal); I25.10 Atherosclerotic heart disease of native coronary artery without angina pectoris; Z79.4 Long term (current) use of insulin; E11.22 Type 2 diabetes mellitus with diabetic chronic kidney disease; I12.0 Hypertensive chronic kidney disease with stage 5 chronic kidney disease or end stage renal disease; N18.6 End stage renal disease; Z79.899 Other long term (current) drug therapy | CPT/HCPCS: 99283 ==

== ENCOUNTER 2022-09-03 11:08 | Emergency (ER) | payer OTHER ==
[2022-09-03 11:53] LABS: Bilirubin Negative (Negative); Blood, Urine Trace (Negative); Clarity Clear (Clear); Glucose, Urine (Dipstick) 500 mg/dL (Negative); Ketone, Urine Negative (Negative); Leukocyte Negative (Negative); Nitrite Negative (Negative); Protein, Urine (Dipstick) > or equal to 300 mg/dL (Neg-Trace); Specific Gravity, Urine 1.015 (1.005-1.030); Urobilinogen 0.2 mg/dL (Less than 2)
[2022-09-03] MEDS ORDERED: Insulin Regular 300 UNITS/3 ML VIAL ONE (11:54)
[2022-09-03] MEDS ORDERED: Diazepam 5 MG TAB ONE (11:54)
[2022-09-03 11:59] LABS: Bacteria/HPF None Seen HPF (None Seen); RBC/HPF 0-3 HPF (0-3); Squamous Epithelial 0-3 HPF (0-3); WBC/HPF None Seen HPF (0-3)
[2022-09-03 12:08] LABS: ALT (SGPT) 14 U/L (8-55); AST (SGOT) 18 U/L (5-34); Albumin 3.2 g/dL (3.5-5.0); Alkaline Phosphatase 171 U/L (40-110); Anion Gap 17 mmol/L (10-20); BUN (Urea Nitrogen) 13 mg/dL (7.0-18.7); Bilirubin, Total 0.8 mg/dL (0.2-1.2); Calc. Creatinine Clearance 0 mL/min (70-130); Carbon Dioxide 23 mmol/L (22-29); Chloride 90 mmol/L (98-107); Estimated GFR 38; Globulin 4.6 g/dL (2.4-3.5); Potassium 3.9 mmol/L (3.5-5.1); Protein, Total 7.8 g/dL (6.0-8.3); Sodium 126 mmol/L (136-145)
[2022-09-03 12:09] LABS: Glucose 667 mg/dL (70-105)
[2022-09-03 12:11] LABS: Eosinophils 3 % (0-10); Hemoglobin 12.2 g/dL (12.0-16.0); Hypochromia SLIGHT = 6-15 cells (100X) (0-5/hpf); Lymphocytes 33 % (21-51); MDiff Complete? YES; Mean Corpuscular HGB CONC 30.1 g/dL (32.0-36.0); Mean Corpuscular Hemoglobin 22.9 pg (27.0-31.0); Mean Platelet Volume 10.6 fL (7.4-10.4); Microcytosis SLIGHT = 6-15 cells (100X) (0-5/hpf); Monocytes 10 % (0-10); Neutrophil 53 % (42-75); Platelet Count 147 10x3/uL (130-400); RBC Distribution Width 16.8 % (11.5-14.5); Red Blood Cell (RBC) Count 5.34 mill/uL (4.20-5.40); White Blood Cell (WBC) Count 4.5 10x3/uL (4.8-10.8)
[2022-09-03] MEDS ORDERED: Acetaminophen 500 MG TAB ONE (13:47)
== END 2022-09-03 13:53 | disposition home or self-care (01) ==
LOC: BURERS 11:08
DX: M54.50 Low back pain, unspecified (principal); E11.65 Type 2 diabetes mellitus with hyperglycemia; I12.9 Hypertensive chronic kidney disease with stage 1 through stage 4 chronic kidney disease, or unspecified chronic kidney disease; N18.9 Chronic kidney disease, unspecified; I25.10 Atherosclerotic heart disease of native coronary artery without angina pectoris; Z79.4 Long term (current) use of insulin; Z79.899 Other long term (current) drug therapy
CPT/HCPCS: 36415; 36416; 80053; 81003; 81015; 82010; 85025; 96361; 96374; 96376; J1815